=== PATIENT | female | born 1950 | race Caucasian/White ===

== ENCOUNTER 2019-12-18 19:28 | Emergency (ER) | payer OTHER ==
[~2019-12-18] VITALS: Ht 167.6 cm; Wt 63.5 kg
[~2019-12-18 19:28] MED LIST: BAYER CHEWABLE81 MG PO; CEFDINIR300 MG PO; CENTRUM SILVER1 EAC4 PO; GARLIC OIL1 EACH PO; GLUCOSAMINE1000 MG PO; MUCINEX TA600 MG/TA2 PO; PEPCID20 MG PO; TESSALON PERLE100 MG PO; VANCOCIN 125 M125 M1 PO; VANCOCIN 250 M250 M1 PO; ZOCOR40 MG PO
[2019-12-18] MEDS ORDERED: LISINOPRIL10 MG PO (19:46)
[2019-12-18 20:18] LABS: ABSOLUTE NEUTROPHILS 4.7 thou/uL (1.4-8.2); BASOPHILS 0.4 % (0.0-2.0); EOSINOPHILS 0.9 % (0.0-3.0); HEMOGLOBIN 13.6 gm/dL (12.0-15.0); LYMPHOCYTES 20.7 % (24.0-44.0); MCH 33.5 pg (26.0-34.0); MCV 98.4 fL (80.0-100.0); MONOCYTES 6.3 % (1.0-8.0); PLATELET COUNT 133 thou/uL (150-400); POLYS 71.7 % (36.0-66.0); RBC 4.06 mil/uL (4.20-5.00); RDW 13.2 % (10.5-14.5); WBC 6.6 thou/uL (4.0-11.0)
[2019-12-18 20:30] LABS: ANION GAP 4 mmol/L (7-16); BUN 13 mg/dL (7-18); CHLORIDE 102 mmol/L (98-107); CO2 32 mmol/L (21-32); CREATININE 0.7 mg/dL (0.6-1.0); GLUCOSE 95 mg/dL (74-106); POTASSIUM 3.8 mmol/L (3.5-5.1); SODIUM 138 mmol/L (136-145)
[2019-12-18 20:41] LABS: LIPASE 98 U/L (73-393); SGOT 18 U/L (15-37); SGPT 16 U/L (30-65); TOTAL BILIRUBIN 0.6 mg/dL (0.2-1.0); TOTAL PROTEIN 6.9 g/dL (6.4-8.2); TROPONIN-I <0.06 ng/mL (<0.06)
[2019-12-19 00:09] VITALS: BP 141/69
--- NOTE | 2019-12-20 11:46 | EKG ---
[facility] [place] [address] ELECTROCARDIOGRAM REPORT Name: KINGSLEY ZAMAN Room #: DEP [facility]#: [id number] Admission: 12/18/19 Attend Phys: Discharge: 12/19/19 Date of : 46 Report #: [id number] THIS REPORT FOR: cc: Gifty Khalil MD, Cora A. MD Couchonnal, Luis F. MD ~ THIS REPORT FOR: //name// [facility] ED Test Date: 2019-12-18 Test Time: 19:34:23 Pat Name: KINGSLEY ZAMAN Department: Room: Gender: Customer Consulting Manager: [facility] : 1950 Requested By: Geovani Hassan Order Number: [id number] MD: Radames Schwarz Measurements Intervals [place] Rate: 72 P: 66 PA: 150 QRS: 76 QRSD: 132 T: 25 QT: 420 QTc: 460 Interpretive Statements Sinus rhythm Right bundle branch block Compared to ECG 02/04/2014 08:36:50 Right bundle-branch block now present Electronically Signed On 12-20-2019 11:45:31 CDT by Radames Schwarz [email or web address] <ELECTRONICALLY SIGNED> By: Radames Schwarz MD 12/20/19 [id number] 33 Radames Schwarz MD /EPI
== END 2019-12-19 00:09 | disposition home or self-care (01) ==
LOC: ER 19:28
PROVIDERS: Emergency Medicine
DX: R07.89 Other chest pain (principal); E78.00 Pure hypercholesterolemia, unspecified; Z88.1 Allergy status to other antibiotic agents; Z79.82 Long term (current) use of aspirin; Z79.899 Other long term (current) drug therapy; Z90.710 Acquired absence of both cervix and uterus